=== PATIENT | female | born 1940 | race Caucasian/White ===

== ENCOUNTER → 2019-01-12 | Outpatient (REF) | payer MEDICARE | END | disposition home or self-care (01) | LOC: RT 13:59 | PROVIDERS: ATTEND Internal Medicine | DX: Z01.818 Encounter for other preprocedural examination (principal); Z01.810 Encounter for preprocedural cardiovascular examination; Z01.811 Encounter for preprocedural respiratory examination ==

== ENCOUNTER 2019-12-03 | Day surgery (SDC) | payer MEDICARE ==
[~2019-12-03] MED LIST: ALPRAZOLAM0.5 MG PO; ARMOUR THYROID15 MG PO; ASPIRIN81 MG PO; ATORVASTATIN CA10 MG PO; BIOTIN EXTR10000 MCG PO; CALCIUM + D PO; CINNAMON500 M1 PO; CITALOPRAM40 M1 PO; COQ-10400 MG PO; CRANBERRY425 M1 PO; EYE HEALTH1 CAP PO; FISH OIL1000 MG PO; FUROSEMIDE20 MG PO; GARLIC OIL; GINKGO BILOB60 MG PO; MAGNESIUM400 M1 PO; MULTI VIT PO; PROBIOTI3; STOOL SOFTNR PO; VITAMIN B CO PO; VITAMIN B-12500 MCG PO; VITAMIN C1000 MG PO; VITAMIN D-31000 UNIT PO; VITAMIN E400 UNIT PO; [UNRECOGNIZED DRUG - OTHER] PO
== END 2019-12-03 09:00 | disposition home or self-care (01) ==
PROC: 0DBL8ZX Excision of Transverse Colon, Via Natural or Artificial Opening Endoscopic, Diagnostic (ICD-10-PCS; principal; 2019-12-03)
PROC: 0DBK8ZX Excision of Ascending Colon, Via Natural or Artificial Opening Endoscopic, Diagnostic (ICD-10-PCS; 2019-12-03)
DX: Z12.11 Encounter for screening for malignant neoplasm of colon (principal); D12.2 Benign neoplasm of ascending colon; D12.3 Benign neoplasm of transverse colon; K64.4 Residual hemorrhoidal skin tags; K57.30 Diverticulosis of large intestine without perforation or abscess without bleeding; K64.8 Other hemorrhoids; E03.9 Hypothyroidism, unspecified; Z86.010 Personal history of colon polyps

== ENCOUNTER 2022-01-07 12:11 | Emergency (ER) | payer MEDICARE ==
[~2022-01-07] VITALS: Ht 167.6 cm; Wt 72.7 kg
[2022-01-07] VITALS (8 sets, daily range): BP systolic 116–146; BP diastolic 65–80
[~2022-01-07 12:11] MED LIST changes: -GARLIC OIL; +GARLIC OIL PO; -PROBIOTI3; +PROBIOTI3 PO
[2022-01-07] MEDS ORDERED: ZINC SULFATE PO (14:11)
[2022-01-07] MEDS ORDERED: TRAMADOL HCL50 MG PO (14:23)
[2022-01-07] MEDS ORDERED: WALKER WHEELS/FIXED (14:40)
== END 2022-01-07 14:59 | disposition home or self-care (01) ==
LOC: ED 12:11
DX: M25.561 Pain in right knee (principal)
CPT/HCPCS: L1830

== ENCOUNTER 2022-01-09 13:56 | Emergency (ER) | payer MEDICARE ==
[~2022-01-09] VITALS: Ht 167.6 cm; Wt 75.0 kg
[~2022-01-09 13:56] MED LIST changes: +TRAMADOL HCL50 MG PO; +WALKER WHEELS/FIXED; +ZINC SULFATE PO
[2022-01-09 14:03] VITALS: BP 159/69
[2022-01-09 14:15] VITALS: BP 141/81
[2022-01-09 14:30] VITALS: BP 122/73
[2022-01-09 14:45] VITALS: BP 132/69
[2022-01-09 15:00] VITALS: BP 124/72
[2022-01-09 15:50] VITALS: BP 124/72
== END 2022-01-09 16:06 | disposition home or self-care (01) ==
LOC: ED 13:56
DX: M25.561 Pain in right knee (principal)

== ENCOUNTER 2023-01-09 15:13 | Emergency (ER) | payer MEDICARE ==
[2023-01-09] VITALS (9 sets, daily range): BP systolic 125–161; BP diastolic 64–92
[~2023-01-09] VITALS: Ht 167.6 cm; Wt 72.7 kg
[2023-01-09] MEDS ORDERED: TRAMADOL HYDROC50 M1 PO (17:19)
[2023-01-09] MEDS ORDERED: VOLTAREN1%GEL TOP (17:19)
== END 2023-01-09 17:37 | disposition home or self-care (01) ==
LOC: ED 15:13
DX: M15.9 Polyosteoarthritis, unspecified (principal); M79.7 Fibromyalgia

== ENCOUNTER 2023-01-22 13:05 | Emergency (ER) | payer MEDICARE ==
[~2023-01-22] VITALS: Ht 167.6 cm; Wt 72.5 kg
[~2023-01-22 13:05] MED LIST changes: +TRAMADOL HYDROC50 M1 PO; +VOLTAREN1%GEL TOP
[2023-01-22 13:16] VITALS: BP 153/83
[2023-01-22 13:30] VITALS: BP 125/73
== END 2023-01-22 13:46 | disposition home or self-care (01) ==
LOC: ED 13:05
DX: F41.9 Anxiety disorder, unspecified (principal); M79.7 Fibromyalgia

== ENCOUNTER 2023-12-08 06:17 | Emergency (ER) | payer MEDICARE ==
[~2023-12-08] VITALS: Ht 167.6 cm; Wt 77.0 kg
[2023-12-08] MEDS ORDERED: Diph, Acellular Pertussis, Tet 0.5 ML/VIAL (Tdap) SDV IM STA (07:47)
[2023-12-08] MEDS ORDERED: ZPAK PO (08:35)
[2023-12-08] MEDS ORDERED: METRONIDAZOLE500 MG PO (08:35)
[2023-12-08] MEDS ORDERED: DOXY-CAPS100 MG PO (08:35)
[2023-12-08 08:55] VITALS: BP 146/81
== END 2023-12-08 09:01 | disposition home or self-care (01) ==
LOC: ED 06:17
DX: S61.551A Open bite of right wrist, initial encounter (principal); F41.9 Anxiety disorder, unspecified; W55.01XA Bitten by cat, initial encounter; Y92.009 Unspecified place in unspecified non-institutional (private) residence as the place of occurrence of the external cause; Z88.1 Allergy status to other antibiotic agents

== ENCOUNTER 2024-10-13 03:15 | Emergency (ER) | payer MEDICARE ==
[~2024-10-13] VITALS: Ht 167.6 cm; Wt 72.0 kg
[~2024-10-13 03:15] MED LIST changes: +DOXY-CAPS100 MG PO; +METRONIDAZOLE500 MG PO; +ZPAK PO
[2024-10-13] MEDS ORDERED: MACROBID100 M1 PO (03:49)
[2024-10-13] MEDS ORDERED: NITROFURANTOIN 100 MG/CAP PO ONE (03:50)
[2024-10-13] MEDS ORDERED: IBUPROFEN 200 MG/TAB PO ONE (03:55)
[2024-10-13] MEDS ORDERED: PHENAZOPYRIDINE HCL 100 MG/TAB PO ONE (03:55)
[2024-10-13 04:16] VITALS: BP 141/88
== END 2024-10-13 04:16 | disposition home or self-care (01) ==
LOC: ED 03:15
DX: N39.0 Urinary tract infection, site not specified (principal); F41.9 Anxiety disorder, unspecified; Z87.440 Personal history of urinary (tract) infections

== ENCOUNTER 2024-10-25 12:20 | Emergency (ER) | payer MEDICARE ==
[~2024-10-25] VITALS: Ht 167.6 cm; Wt 77.1 kg
[~2024-10-25 12:20] MED LIST changes: +MACROBID100 M1 PO
[2024-10-25 14:59] VITALS: BP 134/64
[2024-10-25] MEDS ORDERED: CLINDAMYCIN HY150 MG PO (15:19)
[2024-10-25] MEDS ORDERED: ZOFRAN4 MG/TAB PO (15:19)
[2024-10-25 15:39] VITALS: BP 134/64
== END 2024-10-25 15:40 | disposition home or self-care (01) ==
LOC: ED 12:20
DX: K12.2 Cellulitis and abscess of mouth (principal); Z97.2 Presence of dental prosthetic device (complete) (partial); Z88.0 Allergy status to penicillin

== ENCOUNTER 2024-11-20 12:28 | Emergency (ER) | payer MEDICARE ==
[~2024-11-20] VITALS: Ht 167.6 cm; Wt 72.0 kg
[~2024-11-20 12:28] MED LIST changes: +CLINDAMYCIN HY150 MG PO; +ZOFRAN4 MG/TAB PO
[2024-11-20 12:34] VITALS: BP 174/74
[2024-11-20 12:45] VITALS: BP 161/74
[2024-11-20] MEDS ORDERED: PERMETHRIN5 % EX (12:49)
[2024-11-20 13:00] VITALS: BP 127/73
[2024-11-20 13:01] VITALS: BP 127/73
== END 2024-11-20 13:15 | disposition home or self-care (01) ==
LOC: ED 12:28
DX: B86 Scabies (principal)

== ENCOUNTER 2024-12-27 10:47 | Emergency (ER) | payer MEDICARE ==
[~2024-12-27] VITALS: Ht 167.6 cm; Wt 77.0 kg
[~2024-12-27 10:47] MED LIST changes: +PERMETHRIN5 % EX
[2024-12-27 11:08] VITALS: BP 147/85
[2024-12-27] MEDS ORDERED: FLUORESCEIN SODIUM 1 MG EA OS ONE (11:10)
[2024-12-27] MEDS ORDERED: TETRACAINE HCL 0.5 %/4 ML SOL OS ONE (11:10)
[2024-12-27 11:15] VITALS: BP 116/73
[2024-12-27 11:30] VITALS: BP 125/69
[2024-12-27 11:45] VITALS: BP 130/66
[2024-12-27 12:00] VITALS: BP 130/73
[2024-12-27] MEDS ORDERED: VIGAMOX OD ×2 (12:03→12:20)
[2024-12-27 12:16] VITALS: BP 118/66
== END 2024-12-27 12:20 | disposition home or self-care (01) ==
LOC: ED 10:47
DX: H10.9 Unspecified conjunctivitis (principal); E78.5 Hyperlipidemia, unspecified; M79.7 Fibromyalgia